=== PATIENT | male | born 1955 | race Caucasian/White ===

== ENCOUNTER → 2021-12-08 | Outpatient (CLI) | payer OTHER, MEDICARE | LOC: LAB 13:45 | PROVIDERS: ATTEND Student in an Organized Health Care Education/Training Program | DX: Z20.822 Contact with and (suspected) exposure to COVID-19 (principal) ==

== ENCOUNTER → 2021-12-10 | Outpatient (CLI) | payer OTHER, MEDICARE ==
[~2021-12-10] VITALS: Ht 175.3 cm; Wt 79.4 kg
--- NOTE | 2021-12-12 08:12 | P ---
[facility] [address] PROCEDURE REPORT Name: ERVIN TORIBIO Room #: REG [facility] Lizz.#: [id number] Admission: 12/10/21 Attend Phys: Rich Larkin Discharge: Date of : 55 Report #: [id number] THIS REPORT FOR: cc: Ericka Marin MD, Sara A. MD McElhinney, Christian C. MD ~ cc: Ericka Marin MD DATE OF SERVICE: 12/10/2021 PROCEDURE PERFORMED: Colonoscopy with biopsies. HISTORY OF PRESENT ILLNESS: The patient is a 66-year-old male with a history of bright red blood per rectum, several episodes recently, which has now resolved. This was not associated with abdominal pain, diarrhea or constipation. He denies any anorectal pain. Last colonoscopy was 10 years ago and was normal. No family history of colon cancer. DESCRIPTION OF PROCEDURE: The risks and benefits of the procedure were explained to the patient, those risks including but not limited to bleeding, perforation and the risk of sedation. He understood these risks and gave informed consent. Sedation was given using propofol per anesthesia. Next, a digital rectal exam was initially performed, which was normal. Next, using a standard Olympus colonoscope, the scope was placed in the patient's anus and advanced under direct vision to the cecum. The overall prep was excellent. The cecum and ileocecal valve were normal in appearance. Terminal ileum was intubated and normal in appearance. The ascending, transverse, descending and sigmoid colon were all normal. In the rectum, a 3-mm sessile polyp was noted. This was removed with cold forceps. On retroflexion, small nonbleeding internal hemorrhoids were noted. The scope was then withdrawn and the procedure terminated. The patient tolerated the procedure well. IMPRESSION: 1. Small rectal polyp. 2. Small internal hemorrhoids. 3. Otherwise, normal colonoscopy. RECOMMENDATIONS: 1. Await biopsy results. 2. If polyp is hyperplastic, repeat in 10 years; if adenomatous polyp, repeat in 5 years. 3. Recent bright red blood per rectum, likely secondary to hemorrhoids. No evidence of bleeding at this time. Recommend high fiber diet and Analpram on a p.r.n. basis. [address] [address] PROCEDURE REPORT Name: ERVIN TORIBIO Room #: [facility] Bravo#: [id number] Admission: 12/10/21 Attend Phys: Rich Larkin Discharge: Date of : 55 Report #: [id number] Thank you for allowing me to participate in his care. <ELECTRONICALLY SIGNED> By: Rich South MD 12/12/21 0812 [id number] Rich South MD /nt
--- NOTE | 2021-12-12 13:08 | PATH ---
[facility] [address] [place] [address] PATHOLOGY RPT PROCEDURE Name: KOSTA TORIBIO Room #: REG CL M.R.#: [id number] Admission: 12/10/21 Date of : 55 Discharge: Report #: [id number] Path Case #: [id number] [facility] Accession Number: [id number] . 01 Material submitted: . rectum - RECTAL POLYP BX . 01 Clinical history: . RECTAL BLEEDING . 02 Diagnosis: Rectal polyp, biopsy: - Hyperplastic polyp. - Negative for atypia, dysplasia or malignancy. (ANK:anabel; 12/12/2021) R 12/12/2021 1118 Local . 02 Electronically signed: . Ryann Payne MD, Pathologist NPI- [id number] . 01 Gross description: . The specimen is received in formalin, labeled "Cordell, Kosta, rectal polyp" and consists of multiple jha irregular tissues aggregating 0.3 x 0.2 x 0.1 cm which are filtered and submitted in toto in A1. ([place]; 12/11/2021) DKA/DKA 12/12/2021 1117 Local . 02 Pathologist provided ICD-10: K62.1 . 02 CPT . 572137 Specimen Comment: A courtesy copy of this report has been sent to [phone], [phone] Specimen Comment: [phone] Specimen Comment: Report sent to / DR TRINH Performed at: [address], [place], [place] [id number] MD Miguel Ángel Palmer MD Phone: [phone] Performed at: [address] [id number] MD Ryann Payne MD Phone: [phone]
== END | disposition home or self-care (01) ==
LOC: GI
PROVIDERS: ATTEND Specialist
DX: K92.1 Melena (principal); K62.1 Rectal polyp; K64.8 Other hemorrhoids; F17.210 Nicotine dependence, cigarettes, uncomplicated; Z98.890 Other specified postprocedural states; Z79.899 Other long term (current) drug therapy
CPT/HCPCS: 62110; 62900